=== PATIENT | female | born 2000 | race Two or more races ===

== ENCOUNTER 2025-05-19 15:31 | Emergency (ER) | payer SELFPAY ==
[2025-05-19 15:33] VITALS: BP 131/82; PULSE 56; RESP 16; TEMP 36.9; O2SAT 100
[2025-05-19 15:42] VITALS: PULSE 80; RESP 20; O2SAT 95
--- NOTE | 2025-05-19 15:42 | PC.NURSE ---
Patient to er via ems with [employer] officer at bedside from detention. Patient in detention for taking fentanyl last pm, nurse gave patient narcan at 315pm today,shortly after, patient vomited and they were unable to get blood pressure reading. Currently patients VS wnl, patient opening eyes spontaneously, moves all extremities, patient refusing to talk, pushing staff away while placing patient on CM, per [employer] Mer[employer] states patient was talking last pm and this am. Dr. Gallagher at bedside, new orders received. [ End ]
[2025-05-19 15:50] VITALS: BMI 20.1
--- NOTE | 2025-05-19 15:57 | EDNOTE_ITS ---
Altered Mental Status RME/HPI General Chief Complaint: General Adult/Misc Complain Stated Complaint: possible withdrawals Time Seen by Provider: 05/19/25 15:49 Arrival date/time: 05/19/25 15:31 Limitations: other (She is drowsy and prefers to sleep, not verbalizing but aware of those in the room. She is unable to provide history.) RME / HPI RME / HPI narrative: DR. BROWN MAIN ED EVALUATION: 25-year-old female with a history of drug abuse presents to the Emergency Department [facility] from [facility] for altered mental status and possible overdose. She was admitted to residential last night at 10 PM and was noted to be unresponsive; Narcan was administered at the facility. On arrival, she is drowsy and prefers to sleep, not verbalizing but aware of those in the room. She is unable to provide history. She has no previous visits here and does not provide much history. She has a functioning midline colostomy with normal-colored stool output. Related Data Allergies Allergy/AdvReac Type Severity Reaction Status Date / Time No Known Allergies Allergy Verified 05/19/25 15:59 Review of Systems Review of Systems Systems Reviewed: All systems reviewed, normal except as documented Past Medical History Surgical History SURGICAL: Positive Abdominal Surgery (left abd. colostomy bag) Social History SMOKING STATUS: Current every day smoker SUBSTANCE LAST USED: unknown ED Exam General Limitations: Present other (She is drowsy and prefers to sleep, not verbalizing but aware of those in the room. She is unable to provide history.) General appearance: Present other (disheveled appearance, restraints in place for both hands and legs, stable blood pressure) Head Head exam: Present atraumatic Eye Eye exam: Present normal appearance, PERRL and EOMI ENT ENT exam: Present normal exam, normal oropharynx and mucous membranes moist Neck Neck exam: Present normal inspection, full ROM and trachea midline Chest Chest inspection: Present normal inspection and symmetric chest wall rise Respiratory Respiratory exam: Present normal lung sounds bilaterally Cardiovascular Cardiovascular exam: Present regular rate, normal rhythm and normal heart sounds Abdominal Exam Abdominal exam: Present other (functioning midline colostomy with normal-colored stool output) Extremities Exam Extremities exam: Present normal inspection and full ROM Back Exam Back exam: Present normal inspection and full ROM Neurological Exam Neurological exam: Present other (She is drowsy and prefers to sleep, not verbalizing but aware of those in the room. 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 Tender NOW Care 05/19/25 15:58 Active Continuous Pulse Oximetry NOW Care 05/19/25 15:58 Completed EKG (ED ONLY) *Do not use* NOW Care 05/19/25 15:58 Completed Insert IV NOW Care 05/19/25 15:58 Active EKG (ED Only) Stat Exams 05/19/25 15:58 Draft XR chest 1V portable Stat Exams 05/19/25 15:58 Completed CBC Stat Lab 05/19/25 16:20 Completed Comprehensive Metabolic Panel Stat Lab 05/19/25 16:20 Completed Creatine Kinase Stat Lab 05/19/25 16:20 Completed Drug Screen,Urine Stat Lab 05/19/25 15:59 Ordered Prothrombin Time with INR Stat Lab 05/19/25 16:20 Completed Troponin I Stat Lab 05/19/25 16:20 Completed Urinalysis Stat Lab 05/19/25 15:58 Ordered NALOXONE INJ (Syringe) [Narcan Inj (Syringe)] Med 05/19/25 15:59 Discontinued 1 mg IV X1 ONE Sodium Chloride 0.9% 1000 ml [Ns] 1,000 ml Med 05/19/25 15:58 Discontinued IV 1,000 mls/hr Vital Signs Vital signs: Vital Signs Temperature 98.4 F 05/19/25 15:33 Pulse Rate 56 L 05/19/25 15:33 Respiratory Rate 16 05/19/25 15:33 Blood Pressure 131/82 H 05/19/25 15:33 Pulse Oximetry (%) 100 05/19/25 15:33 Oxygen Delivery Method Room Air 05/19/25 15:33 Altered Mental Status MDM Narrative MDM Narrative:: IJenn am scribing for and in the presence of Dr. Brown. Patient data External records reviewed:: EMS form Clinical information provided by:: patient and EMS Social determinants that could affect healthcare access:: substance use (unknown which ones) Patient has the following chronic illnesses:: Drug abuse. She has a functioning midline colostomy with normal-colored stool output. How is presenting disease/condition affected by chronic disease/condition?: exacerbated by Evaluation data The following diagnostics were reviewed and interpreted by me:: lab results, radiology exam(s) and EKG tracing(s) (My interpretation: EKG performed at 1610 hours, sinus rhythm, rate 55, no acute changes, no STEMI) Lab and/or radiology exams considered but not ordered:: none Interpretation Summary: Procedure(s): XR chest 1V portable Accession Number(s): [id number] cc: Alex Brown MD; Krish Contreras MD; NO PRIMARY/FAMILY,PHYSICIAN~ Examination: AP chest single view Technique one AP portable supine chest single view Date and time: May 19, 2025, 1633 hrs. Indications: Overdose Findings: Normal heart size. Mild vascular congestion. No aspiration pneumonia. The osseous structures are intact Impression: No aspiration pneumonia. Dictated By: Krish Contreras MD Medications / Prescriptions Medications or Prescriptions considered but not ordered:: none Medication administrations:: Medication Administration History Discontinued Medications Sodium Chloride (Ns) 1,000 mls @ 1,000 mls/hr IV .Q1H ONE Stop: 05/19/25 16:57 Last Admin: 05/19/25 16:28 Dose: 1,000 mls/hr Documented By: EVELYNE Naloxone HCl (Naloxone Inj 1 Mg/Ml Syringe 2 Ml) 1 mg IV X1 ONE Stop: 05/19/25 16:00 Last Admin: 05/19/25 16:27 Dose: 1 mg Documented By: EVELYNE see above Consultations Consultation(s) initiated? (list below): No Diagnosis Differential diagnosis altered mental status: other (Opioid overdose, polysubstance ingestion, and metabolic encephalopathy.) Most likely diagnosis given after review of the tests above:: Colostomy in place Drug ingestion Admission Indicated Admission indicated?: not indicated Admission Request Was there a request for admission?: No Disposition Plan Disposition Plan: Discharge (Medically cleared for incarceration.) Discharge Attestation Discharge Attestation: The patient and all family members were given an opportunity to ask questions and understood the discharge instructions. Discharge instructions specifically effects, indications for sooner follow up or return to the emergency department, and the expected course of current diagnosis. Patient condition: Stable Discharge Plan Plan Patient Disposition: HOME (Self Care) Patient condition on transfer: Stable Prescriptions/Referrals Referrals: No Primary/Family,Physician [Primary Care Provider] - In 1 week Problem List Clinical Impression: Colostomy in place, Drug ingestion Patient/Caregiver Discharge Instructions Discharge Activity: activity as tolerated Diet Instructions: regular diet Additional Instructions: Patient is awake and alert but sleepy. Patient is medically cleared. She is medically stable for incarceration. She can be transported by any vehicle to the place of incarceration. Print Language: Malay Stand Alone Forms: Rola Award Info., Patient Portal Info Letter
--- NOTE | 2025-05-19 15:58 | EKG_ITS ---
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
[2025-05-19 16:20] VITALS: PULSE 58
[2025-05-19] MEDS: NALOXONE INJ 1 MG/ML SYRINGE 2 ML IV (16:27)
[2025-05-19] MEDS: SODIUM CHLORIDE 0.9% 1000 ML 1,000 ML IV (16:28)
[2025-05-19 16:30] LABS: Basophils # (Auto) 0.0 Thou/mm3 (0.0-0.2); Basophils % (Auto) 0 % (0-2.5); Eosinophils # (Auto) 0.0 Thou/mm3 (0.0-0.5); Eosinophils % (Auto) 0 % (0-10); Hematocrit 41.5 % (36.0-46.0); Hemoglobin 14.4 g/dL (12.0-16.0); Immature Granulocytes Auto 0.02 Thou/mm3 (0.00-0.00); Lymphocytes # (Auto) 1.1 Thou/mm3 (1.0-4.8); Lymphocytes % (Auto) 16 % (10-50); Mean Corpuscular HGB Conc 34.7 g/dl (31.0-37.0); Mean Corpuscular Hemoglobin 29.9 pg (25.0-35.0); Mean Corpuscular Volume 86 fL (80-100); Monocytes # (Auto) 0.3 Thou/mm3 (0.0-0.8); Monocytes % (Auto) 4 % (0-12); Neutrophils # (Auto) 5.6 Thou/mm3 (1.8-7.7); Neutrophils % (Auto) 80 % (37-80); Nucleated Red Blood Cell # 0.00 Thou/mm3 (0.00-0.00); Nucleated Red Blood Cell % 0 /100 WBC (0); Platelet Count 269 Thou/mm3 (140-440); RDW Standard Deviation 39.4 fL (36.4-46.3); Red Blood Count 4.81 Miln/mm3 (4.00-5.20); White Blood Count 7.1 Thou/mm3 (3.6-11.0)
--- NOTE | 2025-05-19 16:32 | PC.NURSE ---
Patient moving around in bed, makes eye contact and is following commands, however, after iv insertion iv blood draw, patient turns to her side and pulls sheet over her head, [employer] remains at bedside.
[2025-05-19 16:49] LABS: Alanine Aminotransferase 11 U/L (10-49); Albumin, Serum 4.2 gm/dL (3.5-5.0); Albumin/Globulin Ratio 1.7 (1.2-2.2); Alkaline Phosphatase 82 U/L (46-116); Anion Gap 10 (7-16); Aspartate Amino Transferase 18 U/L (0-34); BUN/Creatinine Ratio 23 Ratio (12-20); Bilirubin,Total 1.0 mg/dL (0.3-1.2); Blood Urea Nitrogen 14 mg/dL (9-23); Calcium 9.7 mg/dL (8.3-10.6); Calcium (Corrected) 9.7 mg/dL (8.5-10.1); Carbon Dioxide 26.6 mMol/L (20.0-31.0); Chloride 103 mMol/L (98-107); Creatine Kinase 129 U/L (34-171); Creatinine (Component) 0.6 mg/dL (0.6-1.3); Estimated Creatinine Clearance 117.7 mL/min (>60); Globulin 2.5 gm/dL (2.3-3.5); Glucose 117 mg/dL (74-106); Osmolality,Calculated 280 (275-295); Potassium 3.4 mMol/L (3.4-5.1); Sodium 140 mMol/L (136-145); Total Protein 6.7 gm/dL (5.7-8.2); Troponin I < 0.020 ng/mL (0.0-0.045); eGFR > 60 See Note
[2025-05-19 17:06] LABS: INR 1.2 (0.9-1.3); Prothrombin Time 12.4 Seconds (9.0-12.2)
[2025-05-19 17:09] VITALS: BP 145/90; PULSE 93; RESP 18; TEMP 36.6; O2SAT 100
--- NOTE | 2025-05-19 17:24 | PC.NURSE ---
Patient colostomy bag to left mid abd. full of dark brown liquid stool, emptied approximately 100 ml's. Repositioned patient in bed, patient following commands. Informe patient of need of urine sample and attempted to do in and out cathetar, patient refusing stating no . I asked patient if she would give sample via bed mckinley or get up and go to the bathroom, patient not answering question, moving all ext. and shifting in gurney then pulled sheet over her head. Dr. Gallagher made aware.
[2025-05-19 18:55] VITALS: BP 136/78; PULSE 87; RESP 16; TEMP 36.9; O2SAT 99
== END 2025-05-19 18:55 ==
PROVIDERS: Emergency Provider Family Medicine
DX: T50.901A Poisoning by unspecified drugs, medicaments and biological substances, accidental (unintentional), initial encounter (principal); R40.0 Somnolence; F19.10 Other psychoactive substance abuse, uncomplicated; F17.210 Nicotine dependence, cigarettes, uncomplicated; Z93.3 Colostomy status; Z78.1 Physical restraint status
CPT/HCPCS: 36415; 71045; 80053; 80307; 81001; 82550; 84484; 85025; 85610; 93005; 96360; 99283; J2312; J7030